=== PATIENT | male | born 1950 | race Native Hawaiian/Other Pacific Islander ===

== ENCOUNTER → 2016-06-27 | Outpatient (CLI) | payer MEDICARE | LOC: LAB.O 07:52 | PROVIDERS: ATTEND Family Medicine | DX: Z00.00 Encounter for general adult medical examination without abnormal findings (principal); E11.9 Type 2 diabetes mellitus without complications; E55.9 Vitamin D deficiency, unspecified; E53.8 Deficiency of other specified B group vitamins; Z12.5 Encounter for screening for malignant neoplasm of prostate | CPT/HCPCS: 36415; 80053; 80061; 82306; 82607; 82652; 82746; 83036; 84443; 85025; G0103 ==

== ENCOUNTER → 2017-08-15 | Outpatient (CLI) | payer MEDICARE | LOC: LAB.O 07:05 | PROVIDERS: ATTEND Family Medicine | DX: Z00.00 Encounter for general adult medical examination without abnormal findings (principal); E78.2 Mixed hyperlipidemia; E53.8 Deficiency of other specified B group vitamins; E55.9 Vitamin D deficiency, unspecified; Z12.5 Encounter for screening for malignant neoplasm of prostate | CPT/HCPCS: 36415; 80053; 80061; 82306; 82607; 82627; 84402; 84403; 85025; G0103 ==

== ENCOUNTER → 2018-03-02 | Outpatient (CLI) | payer MEDICARE ==
--- NOTE | 2018-03-02 14:20 | US ---
EXAM DESCRIPTION: Soft Tissue,Extremity: ULTRASOUND. CLINICAL HISTORY: POSSIBLE SLIVER OF WOOD. Patient removed splinter but he thinks he may have left small splinter in finger. Finger swelling with drainage. Lanced by physician. Starting on antibiotics. COMPARISON: None Available. TECHNIQUE: Transcutaneous scanning: Zarate-scale and Doppler modes. FINDINGS: Hypoechoic tissue 8 x 7 x 7 mm inferior to incision. No echogenic foreign body detected. IMPRESSION: Tissue edema versus tiny abscess under incision but no foreign body detected. Electronically signed by: Pal Corado MD 03/02/2018 2:18 PM CDT
== END ==
LOC: RAD 12:54
PROVIDERS: ATTEND Family Medicine
DX: M79.5 Residual foreign body in soft tissue (principal)

== ENCOUNTER → 2018-05-28 | Outpatient (CLI) | payer MEDICARE | LOC: LAB.O 07:11 | PROVIDERS: ATTEND Family Medicine | DX: Z00.00 Encounter for general adult medical examination without abnormal findings (principal); Z12.5 Encounter for screening for malignant neoplasm of prostate; E55.9 Vitamin D deficiency, unspecified; E29.1 Testicular hypofunction | CPT/HCPCS: 36415; 80053; 80061; 82306; 82607; 82627; 84402; 84403; 85025; G0103 ==

== ENCOUNTER → 2018-07-06 | Outpatient (CLI) | payer MEDICARE | LOC: LAB.O 07:11 | PROVIDERS: ATTEND Family Medicine | DX: Z00.00 Encounter for general adult medical examination without abnormal findings (principal); I10 Essential (primary) hypertension; E29.1 Testicular hypofunction; E55.9 Vitamin D deficiency, unspecified; R53.83 Other fatigue; Z12.5 Encounter for screening for malignant neoplasm of prostate | CPT/HCPCS: 36415; 80053; 80061; 82306; 82607; 82626; 84402; 84403; 85025; G0103 ==

== ENCOUNTER → 2019-05-10 | Outpatient (CLI) | payer MEDICARE | END | disposition home or self-care (01) | LOC: LAB.O 07:26 | PROVIDERS: ATTEND Family Medicine | DX: Z00.00 Encounter for general adult medical examination without abnormal findings (principal); Z12.5 Encounter for screening for malignant neoplasm of prostate; Z79.899 Other long term (current) drug therapy | CPT/HCPCS: 36415; 80053; 80061; 82306; 82607; 84443; 85025; G0103 ==

== ENCOUNTER → 2020-01-31 | Outpatient (CLI) | payer MEDICARE | LOC: LAB.O 07:41 | PROVIDERS: ATTEND Family Medicine | DX: E29.1 Testicular hypofunction (principal); R97.20 Elevated prostate specific antigen [PSA]; I10 Essential (primary) hypertension ==